=== PATIENT | male | born 1980 | race African-American/Black ===

== ENCOUNTER 2022-05-16 01:00 | Emergency (ER) | payer OTHER, SELFPAY | END 2022-05-16 01:30 | disposition home or self-care (01) | LOC: BURERS 01:00 | DX: S90.31XA Contusion of right foot, initial encounter (principal); V80.010A Animal-rider injured by fall from or being thrown from horse in noncollision accident, initial encounter ==

== ENCOUNTER 2022-06-25 15:54 | Emergency (ER) | payer SELFPAY ==
[2022-06-25] MEDS ORDERED: Ketorolac Tromethamine 60 MG/2 ML VIAL ONE (16:38)
== END 2022-06-25 16:47 | disposition home or self-care (01) ==
LOC: BURERS 15:54
DX: M54.16 Radiculopathy, lumbar region (principal); M54.41 Lumbago with sciatica, right side; I10 Essential (primary) hypertension; Z79.899 Other long term (current) drug therapy
CPT/HCPCS: 96372; 99283; J1885

== ENCOUNTER 2023-03-12 20:13 | Emergency (ER) | payer OTHER, SELFPAY ==
[2023-03-12] MEDS ORDERED: cloNIDine 0.1 MG TAB ONE ×2 (20:34→20:35)
== END 2023-03-12 21:40 | disposition home or self-care (01) ==
LOC: BURERS 20:13
DX: I10 Essential (primary) hypertension (principal)
CPT/HCPCS: 99283